=== PATIENT | male | born 1980 | race Caucasian/White ===

== ENCOUNTER 2017-01-20 13:00 | Outpatient (RCR) | payer OTHER ==
--- NOTE | 2017-01-10 13:02 | PT/OT/ST INITIAL EVALUATION ---
Department of Health and Human Services Form Approved [facility] Care Financing Administration OMB No. [id number] PLAN OF CARE/ASSESSMENT FOR OUTPATIENT REHABILITATION (Complete for Initial Claims Only) 1. PATIENT'S NAME Pilo Holguin 2. ACC # [id number] 3. HICN NA 4. PROVIDER NO. [id number] 5. TYPE: PT 6. PRIOR HOSPITALIZATION None 7. PRIMARY DX Popliteus tendonitis of left lower extremity 8. SECONDARY DX Left lateral knee pain 9. ONSET DATE 10/02/2015 10. REFERRAL DATE 01/03/2017 11. SOC. DATE 01/09/2017 12. TIME OF EVAL 13:00 12. REFERRING PHYSICIAN Magdaleno Adames MD 13. CHARGES/UNITS Evaluation, manual therapy, and iontophoresis 14. G CODES NA 15. PRIOR LEVEL OF FUNCTION; PERTINENT HISTORY (Prior therapy results, reason for referral.) S: Reason for referral: The patient was referred to physical therapy by Dr. Adames with the diagnosis of osteochondral defect of condyle of femur and popliteus tendinitis of left lower extremity. Description/mechanism of injury: The patient reports that he has been having pain off and on in his left knee for over a year. The patient feels that he had injured the knee or strained it when playing basketball. The patient notes that is able to do many activities without any type of knee pain, however, when it becomes aggravated it gradually increases in intensity to the point that he must stop the activity. The patient regularly golfs, plays basketball, softball and lifts weights. Personal health rating: Rates overall health as good. Pain level: Current pain rating is 3/10. The patient describes the pain as a sharp pain usually with twisting or jumping-type activities. Aggravating factors: The patient feels that constant repetition increases his knee pain. Diagnostic tests The patient has had an MRI, results unknown. Past medical history: Includes right ACL in 2007. Current medications: None Patient's Goal: The patient's goal for therapy is to decrease the pain at his left knee so he can continue activity. 16. INITIAL ASSESSMENT/SAFETY PRECAUTIONS/MEDICAL COMPLICATIONS (Level of function at start of care. Be specific, use objective measures, list problems.) O: APPEARANCE AND OBSERVATION: The patient is a healthy looking athletic 36-year-old male. Appearance of knees demonstrates mild varus deformity at both knees. PALPATION: The patient does have tenderness to palpation at his left lateral IT band insertion. FUNCTIONAL ACTIVITIES: When performing squats, the patient did demonstrate a mild list to the right at end range. Single leg balance in jumping, the patient able to perform without difficulty at this time. No catching, locking or popping noted at left knee. No palpable swelling noted. SPECIAL TESTS: The patient did have mild discomfort with valgus stress at his left knee. RANGE OF MOTION/FLEXIBILITY: Right knee range of motion 0 to 140 degrees, left 0 to 145 degrees. Bilateral hamstring flexibility 60 degrees. The patient did demonstrate mild tightness with IT band flexibility, left greater than right. STRENGTH: Knee flexion and extension strength were 5/5 manual muscle test. No pain reported or indicated. TODAY'S TREATMENT: Treatment included initial evaluation followed by [facility] manual therapy and instruction of home exercise program for stretching. The treatment was ended with iontophoresis to left lateral knee for 10 minutes. 17. INITIAL POC: (Specify procedures, modalities, short and snf goals) A: The patient demonstrates possible left lateral knee tendonitis. PROGNOSIS: The patient may benefit from physical therapy for modalities and manual therapy to decrease inflammation. SHORT TERM GOALS: 1. The patient to be independent and compliant with home exercise program in 1 week. 2. The patient to report 50% decrease in occurrence and intensity of pain with activity in 4 weeks. 3. The patient to report that he is able to perform regular exercise and activity without left knee pain in 6 weeks. P: The patient will be seen 2 times a week over the next 6 weeks. Treatment to include modalities to decrease pain, and inflammation. We will continue to progress the patient with home exercise program for flexibility and stabilization. 18. FREQUENCY 2 times per week 19. DURATION 6 weeks 20. FUNCTIONAL LEVEL (End of claim period) 21. PHYSICIAN SIGNATURE ? ON FILE OR ENTER HERE: 22. DATE: I certify the need for these services furnished under this plan of care and if for partial hospitalization. 23. CERTIFICATION FROM THROUGH [facility]-700
== END 2017-01-29 12:00 | disposition home or self-care (01) ==
LOC: PT 13:00
PROVIDERS: ATTEND Orthopaedic Surgery
DX: M95.8 Other specified acquired deformities of musculoskeletal system (principal); M76.892 Other specified enthesopathies of left lower limb, excluding foot; M25.562 Pain in left knee